=== PATIENT | male | born 1990 | race Caucasian/White ===

== ENCOUNTER 2016-06-27 14:19 | Emergency (ER) | payer BC ==
--- NOTE | 2016-06-27 15:43 | UC ---
Head Injury HPI - History Of Current Complaint Chief Complaint: UCHeadInjury Stated Complaint: HEAD INJURY-MEMORY LOSS Time Seen by Provider: 06/27/16 15:37 Hx Obtained From: Patient Onset/Duration: Sudden Onset - sometime last night had his head slammed into the ground while wrestling his cousin. No memory of the rest of the night. Doesn 't remember some of the drive this morning., Lasting Days - 1, Still Present Character: Dull, Throbbing Aggravating Factor(s): Nothing Alleviating Factor(s): Nothing Associated Signs And Symptoms: Positive: LOC Duration Unknown, Memory Loss, Neck Pain. Negative: Seizure, Nausea, Vomiting - Risk Factors SDH Risk Factor: Male, Recent Trauma - Allergies/Home Medications Allergies/Adverse Reactions: Allergies Allergy/AdvReac Type Severity Reaction Status Date / Time No Known Allergies Allergy Verified 06/27/16 15:22 Home Medications: Home Medications NK [No Home Medications Reported] 06/27/16 [History Confirmed 06/27/16] PMH/Surg Hx/FS Hx/Imm Hx Respiratory History Of: Reports: Asthma - Surgical History Surgical History: None - Social History Occupation: Employed Full-time - [employer] Lives: With Family Alcohol Use: Occasionally Substance Use Type: None Smoking Status (MU): Heavy Every Day Tobacco Smoker Have You Smoked in the Last Year: Yes Review of Systems Neurological: Headache, Other - difficulty with memory, focus and concentration. All Other Systems Reviewed And Are Negative: Yes Physical Exam Triage Information Reviewed: Yes Appearance: Well-Appearing, No Pain Distress, Well-Nourished Vital Signs: Initial Vital Signs Temp 99.6 F 06/27/16 15:18 Pulse 108 06/27/16 15:18 Resp 18 06/27/16 15:18 BP 155/92 06/27/16 15:18 Pulse Ox 99 06/27/16 15:18 Vital Signs Reviewed: Yes Eyes: Positive: Conjunctiva Clear, Other: - EOMI/ PEARRL, discs sharp. ENT: Positive: Pharynx normal, TMs normal Neck: Positive: Nontender - over the spinous processes., Tenderness @ - cervical levators on the left. Respiratory Exam: Normal Cardiovascular Exam: Normal Musculoskeletal Exam: Normal Neurological Exam: Normal - No focal acute findings. Psychological Exam: Normal Skin Exam: Normal Head Injury Course/Dx - Differential Dx/Diagnosis Differential Diagnosis/HQI/PQRI: Concussion With LOC, Contusion, Skull Fracture Provider Diagnoses: Severe concussion with unknown LOC. prolonged post concussion amnesia x 17 hours. Post concussion syndrome. Allergies Discharge - Discharge Plan Condition: Stable Disposition: HOME Patient Education Materials: Concussion (ED), Post Concussion Syndrome (ED) Referrals: Mike Ryder DO [Primary Care Provider] - 1 Day (For following post concussion syndrome) Additional Instructions: NEILMED SINUS RINSE: CHECK OUT AT [facility] Saline nasal wash helps with mucous, allergies and congestion. It can be used up to twice a day or only as needed. Use lukewarm tap water. It does not have to be sterilized or distilled water. Do 1/3 on each side and snort out of both nostrils. Repeat the process with 1/6 of the bottle on each side with snorting in between to finish the solution in the bottle
--- NOTE | 2016-06-27 16:27 | RAD ---
INDICATION: Persistent postconcussion amnesia. COMPARISON: There are no prior studies available for comparison. TECHNIQUE: Contiguous axial sections of the brain were obtained from the skull base to the vertex without contrast. FINDINGS: The ventricles, cisterns and sulci are within normal limits. No significant focal abnormality or mass effect is seen. There is no evidence for hemorrhage. No fracture is seen. There is mucosal thickening present within the maxillary ethmoid and frontal sinuses. The sphenoid sinus and visualized portion of the mastoid air cells appear clear. IMPRESSION: 1. NO EVIDENCE FOR ACUTE INTRACRANIAL ABNORMALITY. 2. FINDINGS SUGGESTIVE OF CHRONIC SINUSITIS.
[2016-06-27 17:10] VITALS: BP 149/91
== END 2016-06-27 17:08 | disposition home or self-care (01) ==
LOC: UCCORT 14:19
DX: F07.81 Postconcussional syndrome (principal); G44.309 Post-traumatic headache, unspecified, not intractable; R41.3 Other amnesia; J45.909 Unspecified asthma, uncomplicated; F17.210 Nicotine dependence, cigarettes, uncomplicated
CPT/HCPCS: 70450; 99201; G0463

== ENCOUNTER 2018-11-14 08:48 | Emergency (ER) | payer SELFPAY ==
[2018-11-14 09:06] VITALS: BP 158/88
[2018-11-14] MEDS ORDERED: Tetan/Diph/Pertus SYR(Tdap)* 0.5 ML SYR(BOOSTRIX) use SYR IM ONE (09:16)
--- NOTE | 2018-11-14 09:27 | UC ---
Lower Extremity/Ankle HPI - HPI Summary HPI Summary: pain right foot x 2 weeks pain is at the plantar surface of right foot pain is 7 out of 10 , sharp / shooting worse with walking , better with rest, puncture wound with a nail 2 weeks ago , now the area is red , swollen and very tender - History of Current Complaint Chief Complaint: UCLowerExtremity Stated Complaint: RIGHT FOOT Time Seen by Provider: 11/14/18 09:03 Hx Obtained From: Patient Onset/Duration: Sudden Onset, Lasting Weeks - 2, Still Present Severity Initially: Moderate Severity Currently: Severe Pain Intensity: 8 Aggravating Factor(s): Standing, Ambulation Alleviating Factor(s): Rest, Elevation Able to Bear Weight: Yes - Allergies/Home Medications Allergies/Adverse Reactions: Allergies Allergy/AdvReac Type Severity Reaction Status Date / Time No Known Allergies Allergy Verified 11/14/18 09:06 PMH/Surg Hx/FS Hx/Imm Hx Previously Healthy: Yes - Surgical History Surgical History: Yes Surgery Procedure, Year, and Place: vasectomy 2018. jaw surgery 2017. tonsillectomy 2002. lymph nodes removed 2011 - Family History Known Family History: Negative: Diabetes - Social History Alcohol Use: Weekly Substance Use Type: None Smoking Status (MU): Heavy Every Day Tobacco Smoker Amount Used/How Often: 1/ppd Have You Smoked in the Last Year: Yes Household Exposure Type: Cigarettes Review of Systems All Other Systems Reviewed And Are Negative: Yes Constitutional: Positive: Negative Eyes: Positive: Negative ENT: Positive: Negative Respiratory: Positive: Negative Is Patient Immunocompromised?: No Physical Exam Triage Information Reviewed: Yes Appearance: Well-Appearing, No Pain Distress, Well-Nourished Vital Signs: Initial Vital Signs Temp 98.2 F 11/14/18 09:00 Pulse 97 11/14/18 09:00 Resp 18 11/14/18 09:00 BP 158/88 11/14/18 09:00 Pulse Ox 99 11/14/18 09:00 Vital Signs Reviewed: Yes Eye Exam: Normal Eyes: Positive: Conjunctiva Clear ENT: Positive: Normal ENT inspection, Hearing grossly normal, Pharynx normal Neck: Positive: Supple, Nontender, No Lymphadenopathy Respiratory: Positive: Chest non-tender, Lungs clear, Normal breath sounds Cardiovascular: Positive: RRR, No Murmur, Pulses Normal Skin: Positive: Other - abscess plantar right foot , + swellen , tender , erythema Lower Extremity Course/Dx - Differential Dx/Diagnosis Provider Diagnosis: Abscess of right foot Discharge - Sign-Out/Discharge Documenting (check all that apply): Patient Departure All imaging exams completed and their final reports reviewed: No Studies - Discharge Plan Condition: Stable Disposition: HOME Prescriptions: Sulfamethox/Trimethoprim DS* [Bactrim DS 800/160 TAB*] 1 tab PO BID #14 tab Patient Education Materials: Abscess (ED) Referrals: No Primary Care Phys,NOPCP [Primary Care Provider] - 7 Days - Billing Disposition and Condition Condition: STABLE Disposition: Home
== END 2018-11-14 09:32 | disposition home or self-care (01) ==
LOC: UCCORT 08:48
DX: F17.200 Nicotine dependence, unspecified, uncomplicated (principal)
CPT/HCPCS: 90471; 90715; 99212; G0463